=== PATIENT | male | born 1965 | race Caucasian/White ===

== ENCOUNTER 2017-07-23 11:09 | Emergency (ER) | payer OTHER ==
[~2017-07-23] VITALS: Ht 182.9 cm; Wt 98.5 kg
[~2017-07-23 11:09] MED LIST: AZITHROMYCIN500 M1 PO; FLEXERIL10 MG PO; METHADONE10 MG/1 M1 PO; NOHOMEMEDS; PERCOCET 5/31 TABLET PO
[2017-07-23 14:34] LABS: HEMATOCRIT 46.5 % (38.0-50.0); HEMOGLOBIN 16.4 G/DL (12.5-16.6); MCH 32.7 PG (29.0-34.0); MCHC 35.3 G/DL (30.0-36.0); MCV 92.6 FL (86-99); PLATELET COUNT 234 K/uL (156-360); RBC DIS.WIDTH-CV 13.8 % (11.8-14.6); RBC DIS.WIDTH-SD 46.8 % (39-53); RED BLOOD COUNT 5.02 M/uL (4.00-5.50); WHITE BLOOD COUNT 7.1 K/uL (4.1-10.2)
[2017-07-23 14:45] LABS: ALBUMIN 4.2 g/dL (3.2-4.8); CHLORIDE 103 mEq/L (99-109); SODIUM 139 mEq/L (136-147)
[2017-07-23 14:47] LABS: GLUCOSE 121 mg/dL (70-99)
[2017-07-23 14:48] LABS: TOTAL PROTEIN 6.8 g/dL (6.4-8.3)
[2017-07-23 14:49] LABS: TOTAL BILIRUBIN 0.4 mg/dL (0.0-1.0)
[2017-07-23 14:50] LABS: APPEARANCE SL.HAZY ((CLEAR)); BILIRUBIN NEGATIVE; BLOOD NEGATIVE; COLOR YELLOW ((YELLOW)); GLUCOSE (STRIP) NEGATIVE; KETONES NEGATIVE; LEUKOCYTES NEGATIVE; NITRITE NEGATIVE; PROTEIN (STRIP) 30; SPECIFIC GRAVITY 1.026 (1.000-1.030); UROBILINOGEN 0.2 MG/DL (0.2-1.0)
[2017-07-23 14:50] LABS: SERUM ETHYL ALCOHOL 218 mg/dL
[2017-07-23 14:51] LABS: ALKALINE PHOSPHATASE 78 IU/L (3-129); CREATININE 0.8 mg/dL (0.6-1.3); GFR ESTIMATE (CALCULATED) > 59 mL/min/ (58.99-99999)
[2017-07-23 14:52] LABS: UREA NITROGEN (BUN) 18 mg/dL (9-23)
[2017-07-23 14:53] LABS: AST (GOT) 34 IU/L (2-34); DIRECT BILIRUBIN 0.2 mg/dL (0.0-0.3)
[2017-07-23 14:54] LABS: ALT (GPT) 22 IU/L (3-49); LIPASE 83 U/L (1.0-51.0)
[2017-07-23 15:01] LABS: BACTERIA NONE SEEN /HPF; EPITHELIAL CELLS NONE SEEN /HPF; MUCUS TRACE /LPF; RED BLOOD CELLS 0-5 /HPF (0-5); UCUL ADDED? NO; WHITE BLOOD CELLS 0-5 /HPF (0-5)
[2017-07-23] MEDS ORDERED: LIBRIUM25 MG PO (16:13)
[2017-07-23] MEDS ORDERED: B-1100 MG PO (16:13)
[2017-07-23 16:24] VITALS: BP 160/102
== END 2017-07-23 16:24 | disposition home or self-care (01) ==
LOC: EME 11:09
PROVIDERS: Physician Assistant Medical
DX: F10.239 Alcohol dependence with withdrawal, unspecified (principal); Y90.7 Blood alcohol level of 200-239 mg/100 ml; F32.9 Major depressive disorder, single episode, unspecified; Z88.5 Allergy status to narcotic agent; Z88.6 Allergy status to analgesic agent
CPT/HCPCS: 80048; 80076; 81003; 83690; 85027; 87502; 99281; 99284; G0480

== ENCOUNTER 2017-07-30 11:51 | Emergency (ER) | payer SELFPAY ==
[~2017-07-30] VITALS: Ht 182.9 cm; Wt 105.0 kg
[~2017-07-30 11:51] MED LIST changes: +B-1100 MG PO; +LIBRIUM25 MG PO
[2017-07-30] MEDS ORDERED: LIBRIUM25 MG PO ×2 (12:52→12:55)
[2017-07-30 13:00] VITALS: BP 165/97
== END 2017-07-30 13:00 | disposition home or self-care (01) ==
LOC: EME 11:51
DX: Z76.0 Encounter for issue of repeat prescription (principal); Z86.59 Personal history of other mental and behavioral disorders
CPT/HCPCS: 99281; 99283

== ENCOUNTER 2017-08-24 20:54 | Emergency (ER) | payer OTHER ==
[~2017-08-24] VITALS: Ht 182.9 cm; Wt 97.7 kg
[2017-08-24 21:53] LABS: HEMATOCRIT 45.2 % (38.0-50.0); HEMOGLOBIN 15.8 G/DL (12.5-16.6); MCH 32.4 PG (29.0-34.0); MCV 92.6 FL (86-99); PLATELET COUNT 168 K/uL (156-360); RBC DIS.WIDTH-CV 13.9 % (11.8-14.6); RBC DIS.WIDTH-SD 47.3 % (39-53); RED BLOOD COUNT 4.88 M/uL (4.00-5.50); WHITE BLOOD COUNT 9.3 K/uL (4.1-10.2)
[2017-08-24 22:06] LABS: CHLORIDE 103 mEq/L (99-109); SODIUM 140 mEq/L (136-147)
[2017-08-24 22:07] LABS: GLUCOSE 134 mg/dL (70-99)
[2017-08-24 22:11] LABS: CREATININE 0.8 mg/dL (0.6-1.3); GFR ESTIMATE (CALCULATED) > 59 mL/min/ (58.99-99999); SERUM ETHYL ALCOHOL 185 mg/dL
[2017-08-24 22:12] LABS: UREA NITROGEN (BUN) 14 mg/dL (9-23)
[2017-08-24 22:15] LABS: TROP-I INTERPRETATION NEGATIVE; TROPONIN-I 0.02 ng/mL (0.0-0.30)
[2017-08-25 03:21] LABS: AMPHETAMINE NEGATIVE (500 ng/mL); BARBITURATES NEGATIVE (200 ng/mL); BENZODIAZEPINES PRESUMPTIVE POSITIVE (150 ng/mL); COCAINE NEGATIVE (150 ng/mL); METHADONE PRESUMPTIVE POSITIVE (200 ng/mL); METHAMPHETAMINE NEGATIVE (500 ng/mL); OPIATES (MORPHINE) PRESUMPTIVE POSITIVE (100 ng/mL); OXYCODONE PRESUMPTIVE POSITIVE (100 ng/mL); PHENCYCLIDINE NEGATIVE (25 ng/mL); THC CANNABINOIDS NEGATIVE (50 ng/mL); TRICYCLIC ANTIDEPRESSANTS NEGATIVE (300 ng/mL)
[2017-08-25 03:22] LABS: BUPRENORPHINE NEGATIVE (10 ng/mL); PROPOXYPHENE NEGATIVE (300 ng/mL)
[2017-08-25 03:50] LABS: BENZODIAZEPINES, URINE SCREEN POSITIVE (200 ng/mL)
[2017-08-25 03:55] LABS: LIPASE 71 U/L (1.0-51.0)
[2017-08-25 04:01] LABS: TROP-I INTERPRETATION NEGATIVE; TROPONIN-I 0.01 ng/mL (0.0-0.30)
[2017-08-25 04:55] VITALS: BP 168/105
== END 2017-08-25 04:56 | disposition home or self-care (01) ==
LOC: EME 20:54
PROVIDERS: Emergency Medicine
DX: F10.129 Alcohol abuse with intoxication, unspecified (principal); F13.129 Sedative, hypnotic or anxiolytic abuse with intoxication, unspecified; F11.129 Opioid abuse with intoxication, unspecified; I10 Essential (primary) hypertension; F32.9 Major depressive disorder, single episode, unspecified; Y90.6 Blood alcohol level of 120-199 mg/100 ml; Z87.442 Personal history of urinary calculi; Z88.6 Allergy status to analgesic agent; Z88.5 Allergy status to narcotic agent
CPT/HCPCS: 71046; 71275; 80048; 83690; 84484; 84999; 85027; 93005; 99281; 99285; G0480; J7030

== ENCOUNTER 2017-11-08 13:36 | Inpatient (IN) | payer SELFPAY ==
[~2017-11-08] VITALS: Ht 182.9 cm; Wt 90.9 kg
[2017-11-08 15:59] LABS: BASOPHIL COUNT 0.1 K/uL (0-0.1); EOSINOPHIL (%) 0.3 % (0-5); HEMATOCRIT 42.1 % (38.0-50.0); HEMOGLOBIN 14.7 G/DL (12.5-16.6); IMMATURE GRANULOCYTE (%) 0.5 % (0.0-0.7); LYMPHOCYTE (%) 28.5 % (15-42); LYMPHOCYTE COUNT 1.1 K/uL (1.0-2.8); MCH 33.4 PG (29.0-34.0); MCHC 34.9 G/DL (30.0-36.0); MCV 95.7 FL (86-99); MONOCYTE COUNT 0.6 K/uL (0-0.8); NEUTROPHIL (%) 54.7 % (45-76); NEUTROPHIL COUNT 2.2 K/uL (1.8-6.4); PLATELET COUNT 124 K/uL (156-360); RBC DIS.WIDTH-CV 15.6 % (11.8-14.6); RBC DIS.WIDTH-SD 54.2 % (39-53)
[2017-11-08 16:07] LABS: ALBUMIN 3.4 g/dL (3.2-4.8)
[2017-11-08 16:08] LABS: CHLORIDE 101 mEq/L (99-109); POTASSIUM 3.8 mEq/L (3.7-5.4); SODIUM 135 mEq/L (136-147)
[2017-11-08 16:10] LABS: GLUCOSE 119 mg/dL (70-99); TOTAL PROTEIN 6.1 g/dL (6.4-8.3)
[2017-11-08 16:12] LABS: TOTAL BILIRUBIN 5.4 mg/dL (0.0-1.0)
[2017-11-08 16:13] LABS: SERUM ETHYL ALCOHOL 283 mg/dL
[2017-11-08 16:14] LABS: ALKALINE PHOSPHATASE 315 IU/L (3-129); CREATININE 0.8 mg/dL (0.6-1.3); GFR ESTIMATE (CALCULATED) > 59 mL/min/ (58.99-99999)
[2017-11-08 16:15] LABS: AST (GOT) 501 IU/L (2-34)
[2017-11-08 16:16] LABS: UREA NITROGEN (BUN) 8 mg/dL (9-23)
[2017-11-08 16:17] LABS: ALT (GPT) 282 IU/L (3-49); SALICYLATE < 5.0 MG/DL (15-30)
[2017-11-08 16:18] LABS: ACETAMINOPHEN (TYLENOL) < 10 mcg/mL (10-30)
[2017-11-08 16:28] LABS: AMPHETAMINE NEGATIVE (500 ng/mL); BARBITURATES NEGATIVE (200 ng/mL); BENZODIAZEPINES NEGATIVE (150 ng/mL); BUPRENORPHINE NEGATIVE (10 ng/mL); COCAINE NEGATIVE (150 ng/mL); METHADONE NEGATIVE (200 ng/mL); METHAMPHETAMINE NEGATIVE (500 ng/mL); OPIATES (MORPHINE) NEGATIVE (100 ng/mL); OXYCODONE NEGATIVE (100 ng/mL); PHENCYCLIDINE NEGATIVE (25 ng/mL); PROPOXYPHENE NEGATIVE (300 ng/mL); THC CANNABINOIDS NEGATIVE (50 ng/mL); TRICYCLIC ANTIDEPRESSANTS NEGATIVE (300 ng/mL)
[2017-11-09 03:19] VITALS: BP 132/95
[2017-11-09 07:52] VITALS: BP 141/87
[2017-11-09 12:02] VITALS: BP 136/76
[2017-11-09 15:53] VITALS: BP 163/102
[2017-11-09 19:49] VITALS: BP 130/98
[2017-11-10 05:15] VITALS: BP 148/105
[2017-11-10 07:53] VITALS: BP 130/85
== END 2017-11-10 09:48 | disposition left against medical advice (07) | DRG 894 ==
LOC: EME 13:36 → 1WEST 11-09 02:10 → EDOF 11-09 02:10 → 1WEST 11-09 02:10 → ENRESERV 11-09 02:41 → 1WEST 11-09 02:59
PROVIDERS: Emergency Medicine
PROC: HZ2ZZZZ Detoxification Services for Substance Abuse Treatment (ICD-10-PCS; principal; 2017-11-09)
DX: F10.239 Alcohol dependence with withdrawal, unspecified (principal); R45.851 Suicidal ideations; F10.280 Alcohol dependence with alcohol-induced anxiety disorder; Y90.8 Blood alcohol level of 240 mg/100 ml or more; F32.9 Major depressive disorder, single episode, unspecified; K76.9 Liver disease, unspecified; R74.8 Abnormal levels of other serum enzymes; F12.10 Cannabis abuse, uncomplicated; F11.10 Opioid abuse, uncomplicated; F19.10 Other psychoactive substance abuse, uncomplicated; F17.200 Nicotine dependence, unspecified, uncomplicated; Z87.442 Personal history of urinary calculi
CPT/HCPCS: 71046; 80053; 85025; 90839; 99281; 99285; G0480